=== PATIENT | female | born 1970 | race Caucasian/White ===

== ENCOUNTER → 2017-06-23 | Outpatient (CLI) | payer OTHER ==
[~2017-06-23] MED LIST: PRILOSEC PO; STRATTERA25 MG PO; SYNTHROID0.05 MG PO; TOPAMAX50 MG PO
== END | disposition home or self-care (01) ==
LOC: CBAR 14:04
DX: Z01.812 Encounter for preprocedural laboratory examination (principal); E66.01 Morbid (severe) obesity due to excess calories
CPT/HCPCS: 36415; 84443; 86677; G0463

== ENCOUNTER → 2017-07-10 | Outpatient (CLI) | payer OTHER ==
--- NOTE | ~2017-07-10 | EKG ---
PATIENT: RACHELL PARRA UNIT #: [id number] Ventricular Rate: 66 BPM Atrial Rate: 66 BPM P-R Interval: 128 ms QRS Duration: 78 ms Q-T Interval: 370 ms QTC Calculation(Bezet): 387 ms P [place]: -4 degrees Calculated R [place]: 18 degrees Calculated T [place]: 12 degrees Diagnosis Line: Normal sinus rhythm with sinus arrhythmia Diagnosis Line: Normal ECG Diagnosis Line: No previous ECGs available Diagnosis Line: Confirmed by LOYDA WADE MD ([id number]) on 07/10/2017 Diagnosis Line: 5:25:58 PM INTERPRETING MD: SHERI LIND
--- NOTE | ~2017-07-10 | CR63 ---
[facility] A Service of [facility] & [facility] RADIOLOGY TEXT RESULTS PATIENT: RACHELL PARRA LOCATION: [facility] : 72 UNIT #: [id number] AGE: [address]: Milton Rajput III, MD SEX: F ORDER DR: [id number] [facility] [address] [place], [place] [address] [id number] O MR#: [id number] Acc #: [id number] NAME: RACHELL PARRA : 1970 SEX: F STUDY DATE/TIME: 07/10/2017 7:52 UNIT: [facility] ROOM: STUDY DESCRIPTION: CR Chest 2 View Attending Physician: Milton Rajput III, M.D. Referring Physician: Milton Rajput III, M.D. Ordering Physician: Milton Rajput III, M.D. Primary Care Physician: Jana Kaufman M.D. MEDICAL IMAGING REPORT This report is preliminary unless electronic signature is present EXAM Chest PA and lateral 07/10/2017 HISTORY Shortness of breath on exertion. Morbid obesity, preop laparoscopic gastric banding. Gastroesophageal reflux disease. FINDINGS PA and lateral examination of the chest upright shows a good expansion of the parenchyma with a normal distribution of the pulmonary vascularity. There is no indication of congestion, effusion, infiltrate, tumor, or nodular density. The pleural reflections and diaphragmatic contours are normal. The cardiac silhouette and mediastinal anatomy is within normal limits. IMPRESSION Normal chest. Dictated by... Darvin Rose M.D. THIS IS AN ELECTRONICALLY VERIFIED REPORT Darvin Rose M.D. at 07/10/2017 4:39 PM TIFFANI/angeles TD: 07/10/2017 16:12 JOB #: [id number] MEDICAL IMAGING REPORT Page 1 of 1 COPY
--- NOTE | ~2017-07-10 | CR97 ---
[facility] A Service of [facility] & [facility] RADIOLOGY TEXT RESULTS PATIENT: RACHELL PARRA LOCATION: [facility] : 72 UNIT #: [id number] AGE: [address]: Milton Rajput III, MD SEX: F ORDER DR: [id number] [facility] [address] [place], [place] [address] [id number] O MR#: [id number] Acc #: [id number] NAME: RACHELL PARRA : 1970 SEX: F STUDY DATE/TIME: 07/10/2017 9:53 UNIT: [facility] ROOM: STUDY DESCRIPTION: CR Esophagram Attending Physician: Milton Rajput III, M.D. Referring Physician: Milton Rajput III, M.D. Ordering Physician: Milton Rajput III, M.D. Primary Care Physician: Jana Kaufman M.D. MEDICAL IMAGING REPORT This report is preliminary unless electronic signature is present EXAM Esophagram 07/10/17 HISTORY Planned bariatric surgery preop assessment. PROCEDURE Study performed with 0.3 minutes of fluoroscopy and 6 spot images. FINDINGS Esophagus is normal in course and caliber, and there is no mass, stricture, ulceration, or hernia. IMPRESSION Normal esophagram. Dictated by... Milton Lau M.D. THIS IS AN ELECTRONICALLY VERIFIED REPORT Milton Lau M.D. at 07/13/2017 9:06 AM ANGIE/tee TD: 07/11/2017 02:07 JOB #: [id number] MEDICAL IMAGING REPORT Page 1 of 1 COPY
[2017-07-10 09:20] LABS: HEMATOCRIT 41.5 % (35.0-45.0); MEAN CELL VOLUME 84.7 FL (83-96); MEAN CORPUSCULAR HEMOGLOBIN 28.6 PG (28-34); MEAN CORPUSCULAR HGB CONC 33.7 g/dL (30-36); RED BLOOD COUNT 4.9 X10e (3.90-5.30); RED CELL DISTRIBUTION WIDTH 14.4 % (11.0-15.5); WHITE BLOOD COUNT 6.9 X10e3 (4.0-10.5)
[2017-07-10 09:53] LABS: ALBUMIN SERUM 4.1 g/dL (3.5-5.0); BILIRUBIN,TOTAL 0.6 mg/dL (0.2-2.0); BUN/CREATININE RATIO 23.33; CALCIUM SERUM 9.3 mg/dL (8.4-10.2); CREATININE SERUM 0.6 mg/dL (0.6-1.4); GLOM FILT RATE Estimated 109.3 mL/min (>60); PROTEIN TOTAL SERUM 6.9 g/dL (6.0-8.3)
== END | disposition home or self-care (01) ==
LOC: CRAD 07:32 → CAMB 10:00
PROVIDERS: Surgery
DX: Z01.818 Encounter for other preprocedural examination (principal)
CPT/HCPCS: 36415; 71020; 74220; 80053; 80061; 84443; 85027; 93005

== ENCOUNTER → 2017-07-22 | Day surgery (SDC) | payer OTHER ==
--- NOTE | ~2017-07-22 | CR7 ---
[facility] A Service of [facility] & [facility] RADIOLOGY TEXT RESULTS PATIENT: RACHELL PARRA LOCATION: [facility] : 72 UNIT #: [id number] AGE: [address]: Milton Rajput III, MD SEX: F ORDER DR: [id number] [facility] [address] [place], [place] [address] [id number] O MR#: [id number] Acc #: [id number] NAME: RACHELL PARRA : 1970 SEX: F STUDY DATE/TIME: 07/22/2017 8:20 UNIT: [facility] ROOM: STUDY DESCRIPTION: CR Abdomen Single AP View Attending Physician: Milton Rajput III, M.D. Referring Physician: Milton Rajput III, M.D. Ordering Physician: Milton Rajput III, M.D. Primary Care Physician: Jana Kaufman M.D. MEDICAL IMAGING REPORT This report is preliminary unless electronic signature is present EXAM Supine radiograph of abdomen 07/22/2017 HISTORY Postop Lap-Band PACU front, abdomen pain, short of air, morbid obesity, today. FINDINGS Supine radiograph of the abdomen presented. Suboptimal examination. Right hemiabdomen not entirely included on field of view. Patient is status post placement of Lap-Band device. Band component at anticipated location of gastroesophageal junction, based on prior esophagram 07/10/2017. Band component approximately 35 degrees from vertical. Catheter component intact. The port component is implanted over the lower left hemiabdomen. Bowel gas pattern normal. No free air. Prior tubal ligation. Bony structures unremarkable. Dictated by... Augie Forbes M.D. THIS IS AN ELECTRONICALLY VERIFIED REPORT Augie Forbes M.D. at 07/23/2017 7:09 PM FOZIA/cris TD: 07/22/2017 15:20 JOB #: [id number] MEDICAL IMAGING REPORT Page 1 of 1 COPY
--- NOTE | ~2017-07-22 | OR ---
Unit #: [id number] #: [id number] Patient: RACHELL PARRA [id number] [place], [place] [address] [id number] O MR#: [id number] NAME: RACHELL PARRA ROOM: Date of Procedure: 07/22/2017 Admission Date: 07/22/2017 Surgeon: Milton Rajput III, M.D. : 1970 Attending Physician: Milton Rajput III, M.D. Referring Physician: Milton Rajput III, M.D. Primary Care Physician: Jana Kaufman M.D. OPERATIVE REPORT PREOPERATIVE DIAGNOSIS Chronic morbid obesity. POSTOPERATIVE DIAGNOSIS Chronic morbid obesity. SECONDARY DIAGNOSES Anterior paraesophageal hernia. PROCEDURES PERFORMED Laparoscopic adjustable gastric banding (AP standard with low-profile port) and laparoscopic paraesophageal hernia repair. [employer] Dr. Augie Dumas. SPECIMENS None. COMPLICATIONS None apparent. ESTIMATED BLOOD LOSS Minimal. ANESTHESIA General endotracheal tube anesthesia. INDICATIONS FOR PROCEDURE This is a 47-year-old lady, who has chronic morbid obesity with a BMI of 45 and associated comorbidities of reflux and sleep apnea. She has been through the bariatric program at [facility] and understands the risks and benefits of the procedure. DESCRIPTION OF PROCEDURE After consent was obtained, including the risks and benefits of slippage, erosion, port dysfunction, and possible failure of weight loss due to noncompliance, the patient was taken to the operating room and placed in the supine position. General anesthetic was administered and the abdomen was prepped and draped in standard surgical fashion. I began by making a 2 cm incision just above and to the left of the Unit #: [id number] #: [id number] Patient: RACHELL PARRA umbilicus. I used a Visiport to enter the peritoneal cavity without any difficulty. C02 pneumoperitoneum was then established. Next, I placed a 5 mm port in the right upper quadrant, a 5 mm Maurice liver retractor in the subxiphoid region to provide exposure of the gastroesophageal junction. Next, a 10 mm port was placed in the left upper quadrant and a 5 mm port was placed in the left lateral subcostal region. I began by performing an examination of the GE junction to evaluate for a hiatal hernia. We then scored the peritoneal attachments overlying the angle of His. I then opened up the clear space in the gastrohepatic ligament, and then using 2 blunt graspers, I identified the small fat pad crossing over the right crura. I swept the fat anterior to the crura off the crura and using the pars flaccida, I created a retrogastric tunnel where the blunt grasper exited at the angle of His. Once I had made this tunnel safely, I then inserted an Allergan AP band into the abdominal cavity. This adjustable gastric band was then place around the upper part of the stomach and fastened and buckled anteriorly. We then tacked the lateral fundus over the band to the proximal pouch with 2 interrupted 0 Ethibond sutures. I then used a third stitch to imbricate the excess anterior stomach by going from the lesser curvature up towards where the last stitch was placed. We then had excellent hemostasis. I removed the Maurice liver retractor. We then removed the port tubing through the initial port incision. The rest of the ports were removed, and the pneumoperitoneum was released. I then left a small tail on the tubing. We then attached the port to the excess band tubing. We placed a piece of Prolene mesh along the back side of the port and used a Prolene stitch to anchor this mesh in place. We then trimmed the excess mesh so that just a small footprint of mesh was in place behind the port. I then inserted the tubing back into the abdominal cavity, and we placed the port into a small pocket that was made just inferior to where our initial port incision was made. The mesh was in direct contact with the fascia, and this will scar in place to hold the port in place. We then injected all the port sites with 0.25% plain Marcaine, and I reapproximated the skin edges with interrupted 4-0 Vicryl subcuticular sutures. Steri-strips were then applied. The patient tolerated the procedure without any problems and returned to the recovery room in stable condition. ADDENDUM After exposure of the GE junction, the patient was noted to have a small to medium size anterior paraesophageal hernia. I scored the phrenoesophageal ligament, reduced the hernia defect and after identifying both the right and left crura, I reapproximated the defect with an interrupted 0 Ethibond [id number] suture. I then proceeded with the case as listed above. Dictated by... Milton Rajput III, M.D. VCL/jarad TD: 07/23/2017 11:47 JOB #: [id number] CC: Jana Kaufman M.D. Unit #: [id number] #: [id number] Patient: RACHELL PARRA OPERATIVE REPORT Page 1 of 1 X Milton Rajput III, MD PROCEDURE OPERATIVE NOTE
== END | disposition home or self-care (01) ==
LOC: CSUR 06:00
DX: E66.01 Morbid (severe) obesity due to excess calories (principal); K44.9 Diaphragmatic hernia without obstruction or gangrene; K21.9 Gastro-esophageal reflux disease without esophagitis; G47.30 Sleep apnea, unspecified; E03.9 Hypothyroidism, unspecified; G43.909 Migraine, unspecified, not intractable, without status migrainosus; F41.9 Anxiety disorder, unspecified; F32.9 Major depressive disorder, single episode, unspecified; Z68.42 Body mass index [BMI] 45.0-49.9, adult; Z88.5 Allergy status to narcotic agent; Z79.899 Other long term (current) drug therapy
CPT/HCPCS: 74000; C1781; J0330; J0690; J1100; J1650; J1885; J2250; J2405; J2710; J3010